=== PATIENT | female | born 1990 | race Caucasian/White ===

== ENCOUNTER → 2020-09-12 | Outpatient (CLI) | payer MEDICAID | END | disposition home or self-care (01) | LOC: LABWHC1 12:41 | PROVIDERS: ATTEND Pediatrics Pediatric Infectious Diseases | DX: Z03.818 Encounter for observation for suspected exposure to other biological agents ruled out (principal) | CPT/HCPCS: U0003; C9803 ==

== ENCOUNTER → 2020-09-15 | Outpatient (CLI) | payer MEDICAID | END | disposition home or self-care (01) | LOC: LABWHC1 15:27 | PROVIDERS: ATTEND Pediatrics Pediatric Infectious Diseases | DX: Z03.818 Encounter for observation for suspected exposure to other biological agents ruled out (principal) | CPT/HCPCS: U0003; C9803 ==

== ENCOUNTER → 2021-08-02 | Outpatient (CLI) | payer MEDICAID | END | disposition home or self-care (01) | LOC: EDSTATUS 10:31 → LABIHS 12:00 → LABWHC1 12:00 | PROVIDERS: ATTEND Emergency Medicine | DX: Z20.822 Contact with and (suspected) exposure to COVID-19 (principal) | CPT/HCPCS: 87635 ==

== ENCOUNTER → 2023-09-17 | Outpatient (CLI) | payer MEDICAID ==
--- NOTE | 2023-09-25 10:19 | HM ---
HOLTER MONITOR REPORT The patient was monitored for 48 hours. CLINICAL INFORMATION: Baseline rhythm is sinus mechanism with a normal conduction. The average rate 74 beats per minute, minimum 53, maximum 148 beats per minute. Ventricular ectopic activity was present in form of rare single PVCs. Supraventricular ectopic activity was present in the form of rare single PACs. There was one episode of 2:1 conduction that occurred at 2:50 a.m. Asymptomatic. Symptoms of palpitations and anxiety did not correlate with any dysrhythmia. CONCLUSION: 1. Sinus mechanism baseline rhythm. 2. Rare ventricular ectopic activity. 3. Rare supraventricular ectopic activity. 4. Symptoms did not correlate with any dysrhythmia. MMODL / IJN: [id number] / MTDJustin
== END | disposition home or self-care (01) ==
LOC: RADECHMAIN 07:40
PROVIDERS: ATTEND Family Medicine
DX: I49.3 Ventricular premature depolarization (principal); R00.2 Palpitations
CPT/HCPCS: 93225; 93226

== ENCOUNTER → 2023-12-05 | Outpatient (CLI) | payer MEDICAID ==
--- NOTE | 2023-12-05 18:47 | CA ---
Exercise Stress Test Report Name: Sue Coon Exam Date: 12/05/2023 09:05 Exam Location: [place] Stress Ht (in): 64 Wt (lb): 130 BSA: 1.63 Ordering Phys: Mary Villalobos MD Referring Phys: CARI, Technologist: Juan Livingston Age: 33 Gender: F : 1990 Procedure CPT: Indications: R00.2 palpitations ICD-10 Codes: Patient History: Medications: Meds past 24 hrs: Pretest Chest Pain: STRESS TEST Kumar Protocol Exercise Duration (min:sec): 12:[address] Depressions (mm): Angina Score: Mckeon Score: Resting HR (bpm): 89 Peak HR (bpm): 169 Resting BP (mmHg): 100 / 77 Peak BP (mmHg): 126 / 49 MPHR: 186 Target HR: 158 % MPHR: 91 METS: 12.1 Total Dose: Peak Dose: Atropine: Double Product: 03601 BP Response: Stress Termination: TARGET HR REACHED/MAX EXERTION Stress Symptoms: NO SYMPTOMS Stress Summary: ECG ANALYSIS Resting ECG: Stress ECG: CONCLUSIONS Good exercise capacity on a Kumar protocol 12 minutes of Kumar protocol, normal heart rate and blood pressure response No ECG evidence for ischemia or arrhythmia Dr. Joe Zuñiga MD (Electronically Signed) Final Date: 05 December 2023 18:46
--- NOTE | 2023-12-06 09:51 | CA ---
Transthoracic Echo Report Name: Sue Coon Age: 33 Gender: F : 1990 Exam Date: 12/05/2023 09:26 Exam Location: [place] Echo Ht (in): 64 Wt (lb): 130 Ordering Physician: Mary Villalobos MD ([id number]) Attending/Referring Phys: Can Repairer Brinda Morejon [facility] Procedure CPT: Indications: R00.2 palpitations Cardiac Hx: Technical Quality: Fair Contrast 1: Total Dose (mL): Contrast 2: Total Dose (mL): MEASUREMENTS (Male / Female) Normal Values 2D ECHO LV Diastolic Diameter PLAX 4.5 cm 4.2 - 5.9 / 3.9 - 5.3 cm LV Systolic Diameter PLAX 3.1 cm IVS Diastolic Thickness 0.7 cm 0.6 - 1.0 / 0.6 - 0.9 cm LVPW Diastolic Thickness 0.7 cm 0.6 - 1.0 / 0.6 - 0.9 cm LV Relative Wall Thickness 0.3 LVOT Diameter 2.0 cm Ascending Aorta Diameter 3.1 cm M-MODE Aortic Root Diameter MM 2.7 cm LA Systolic Diameter MM 2.8 cm LA Ao Ratio MM 1.0 AV Cusp Separation MM 2.2 cm DOPPLER AV Peak Velocity 111.1 cm/s AV Peak Gradient 4.9 mmHg AV Mean Velocity 85.4 cm/s AV Mean Gradient 3.1 mmHg AV Velocity Time Integral 22.4 cm LVOT Peak Velocity 96.2 cm/s LVOT Peak Gradient 3.7 mmHg LVOT Velocity Time Integral 17.8 cm LVOT Stroke Volume 54.5 cm??? LVOT Stroke Volume Index 33.4 ml/m??? LVOT Cardiac Index 3063.6 cm???/min???m??? AV Area Cont Eq vti 2.4 cm??? AV Area Cont Eq pk 2.6 cm??? Mitral E Point Velocity 62.1 cm/s Mitral A Point Velocity 58.3 cm/s Mitral E to A Ratio 1.1 MV Deceleration Time 221.8 ms LV E' Lateral Velocity 16.8 cm/s Mitral E to LV E' Lateral Ratio 3.7 LV E' Septal Velocity 11.9 cm/s Mitral E to LV E' Septal Ratio 5.2 TR Peak Velocity 192.2 cm/s TR Peak Gradient 14.8 mmHg Right Atrial Pressure 3.0 mmHg Pulmonary Artery Systolic Pressu 17.8 mmHg Right Ventricular Systolic Press 17.8 mmHg FINDINGS Left Ventricle Left ventricular wall thickness normal. Left ventricular cavity size normal. Low normal left ventricular systolic function with no obvious regional wall motion abnormalities. Left ventricular ejection fraction is estimated at 50- 55%. Right Ventricle Normal right ventricular size. Right Atrium Normal right atrial size. Left Atrium Normal left atrial size. Mitral Valve Structurally normal mitral valve. No mitral regurgitation. Aortic Valve Trileaflet aortic valve. No aortic valve stenosis or regurgitation. Tricuspid Valve Structurally normal tricuspid valve. Trace tricuspid regurgitation. Pulmonic Valve Pulmonic valve not well visualized. Pericardium Normal pericardium. Aorta Normal size aortic root and proximal ascending aorta. CONCLUSIONS Normal LV size and systolic function Previewed by: Dr. Joe Zuñiga MD (Electronically Signed) Final Date: 06 December 2023 09:51
== END | disposition home or self-care (01) ==
LOC: RADNMMAIN 08:47
PROVIDERS: ATTEND Internal Medicine Interventional Cardiology
DX: R00.2 Palpitations (principal); R07.9 Chest pain, unspecified
CPT/HCPCS: 93017; 93306

== ENCOUNTER 2024-01-08 13:46 | Emergency (ER) | payer MEDICAID ==
[2024-01-08 14:11] VITALS: TEMP 99
[2024-01-08 14:11] LABS: Basophils # (A) 0.1 k/uL (0-0.2); Basophils % (A) 1 %; Eosinophils # (A) 0.3 k/uL (0-0.7); Eosinophils % (A) 4 %; HGB 14.9 gm/dL (11.4-16.0); Lymphocytes # (A) 1.2 k/uL (1.0-4.8); Lymphocytes % (A) 15 %; MCH 29.1 pg (25.0-35.0); MCHC 32.5 g/dL (31.0-37.0); MCV 89.7 fL (80.0-100.0); Mean Platelet Volume 7.2; Monocytes # (A) 0.8 k/uL (0-1.0); Monocytes % (A) 11 %; Neutrophils % (A) 67 %; Platelet Count 236 k/uL (150-450); RBC 5.12 m/uL (3.80-5.40); RDW 12.1 % (11.5-15.5); WBC 7.6 k/uL (3.8-10.6)
--- NOTE | 2024-01-08 14:11 | ED ---
General Adult HPI - General Chief complaint: Shortness of Breath Stated complaint: Tachy,SOB Source: patient Mode of arrival: ambulatory Limitations: no limitations - History of Present Illness Initial comments: Dictation was produced using [employer] dictation software. please excuse any grammatical, word or spelling errors. Chief Complaint: 33-year-old female presents with acute weakness presyncope History of Present Illness: Patient 33-year-old female she works in our [employer] department. She has been feeling ill since this morning. Patient completed a course recently for treatment of bronchitis. She is taking steroids and antibiotics a week ago. This morning she woke up feeling constitutional symptoms with fever chills body aches. She was at work when she had a presyncopal event. Coworkers at the bedside brought patient to the emergency department for further evaluation. Patient states that she has been having a nonproductive cough that has not improved over the last several weeks. The ROS documented in this emergency department record has been reviewed and confirmed by me. Those systems with pertinent positive or negative responses have been documented in the HPI. All other systems are other negative and/or noncontributory. - Related Data Allergies Allergy/AdvReac Type Severity Reaction Status Date / Time cefdinir [From Omnicef] Allergy Rash/Hives Verified 01/08/24 14:10 clarithromycin [From Biaxin] Allergy Rash/Hives Verified 01/08/24 14:10 Review of Systems ROS Statement: Those systems with pertinent positive or pertinent negative responses have been documented in the HPI. ROS Other: All systems not noted in ROS Statement are negative. Past Medical History History of Any Multi-Drug Resistant Organisms: None Reported Past Psychological History: No Psychological Hx Reported Smoking Status: Never smoker Past Alcohol Use History: Rare Past Drug Use History: None Reported General Exam - General Exam Comments Initial Comments: PHYSICAL EXAM: General Impression: Alert and oriented x3, not in acute distress HEENT: Normocephalic atraumatic, extra-ocular movements intact, pupils equal and reactive to light bilaterally, mucous membranes moist. Cardiovascular: Mildly tachycardic Chest: Able to complete full sentences, no retractions, no tachypnea Abdomen: abdomen soft, non-tender, non-distended, no organomegaly Musculoskeletal: Pulses present and equal in all extremities, no peripheral edema Motor: no focal deficits noted Neurological: CN II-XII grossly intact, no focal motor or sensory deficits noted Skin: Intact with no visualized rashes Psych: Normal affect and mood Limitations: no limitations Course Vital Signs 01/08/24 14:00 Temperature 99.0 F Pulse Rate 125 H Respiratory 20 Rate Blood Pressure 135/86 O2 Sat by Pulse 99 Oximetry EKG Findings - EKG Comments: EKG Findings:: My EKG interpretation: Ventricular rate 109, sinus tachycardia,. 152, cures 81, QTc 382. No AK prolongation, no QTC prolongation, no ST or T-wave changes noted. . Overall, this EKG is unremarkable Medical Decision Making - Medical Decision Making Was pt. sent in by a medical professional or institution (, PA, PROPULSION ENGINEER, urgent care, hospital, or custodial...) When possible be specific @ -No Did you speak to anyone other than the patient for history (EMS, parent, family, police, friend...)? What history was obtained from this source @ -Coworkers at the bedside as discussed above Did you review nursing and triage notes (agree or disagree)? Why? @ -I reviewed and agree with nursing and triage notes Were old charts reviewed (outside hosp., previous admission, EMS record, old EKG, old radiological studies, urgent care reports/EKG's, custodial records)? Report findings @ -No old charts were reviewed Differential Diagnosis (chest pain, altered mental status, abdominal pain women, abdominal pain men, vaginal bleeding, musculoskeletal, weakness, fever, dyspnea, syncope, headache, dizziness, GI bleed, back pain, seizure, CVA, palpatations, mental health)? @ -Differential Syncope: Valvular disease, hypertrophic cardiomyopathy, pulmonary embolism, tamponade, tachycardia, bradycardia, GA, hypovolemia, hemorrhage, dissection, anemia, intracranial hemorrhage, seizure, hypoglycemia, carbon monoxide poisoning, this is not meant to be an all-inclusive list. EKG interpreted by me (3pts min.). @ -See above X-rays interpreted by me (1pt min.). @ -Chest x-ray is nonacute CT interpreted by me (1pt min.). @ -None done U/S interpreted by me (1pt. min.). @ -None done What testing was considered but not performed or refused? (CT, X-rays, U/S, labs)? Why? @ -None What meds were considered but not given or refused? Why? @ -None Did you discuss the management of the patient with other professionals (professionals i.e. , PA, PROPULSION ENGINEER, lab, RT, psych nurse, protective services social worker, [employer] teacher, teacher, aboriginal liaison officer, casework manager)? Give summary @ -No Was smoking cessation discussed for >3mins.? @ -No Was critical care preformed (if so, how long)? @ -No Were there social determinants of health that impacted care today? How? (Homelessness, low income, unemployed, alcoholism, drug addiction, transportation, low edu. Level, literacy, decrease access to med. care, intermediate, re hab)? @ -No Was there de-escalation of care discussed even if they declined (Discuss DNR or withdrawal of care, Hospice)? DNR status @ -No What co-morbidities impacted this encounter? (DM, HTN, Smoking, COPD, CAD, Cancer, CVA, ARF, Chemo, Hep., AIDS, mental health diagnosis, sleep apnea, morbid obesity)? @ -None Was patient admitted / discharged? Hospital course, mention meds given and route, prescriptions, significant lab abnormalities, going to OR and other pertinent info. @ -33-year-old female presents to the emergency department for syncope palpitations and constitutional symptoms. Vital signs upon arrival shows heart rate of 125. Low-grade temperature of 98.0. Blood pressure normal. hospital monitor reviewed. Patient would have heart rates into the low 100s. D-dimer is unremarkable her troponin is negative. Electrolytes normal. TSH normal. Influenza A positive. Patient offered Tamiflu patient refused. Patient be discharged. Advised follow-up with primary care doctor. Vital signs improved Undiagnosed new problem with uncertain prognosis? @ -No Drug Therapy requiring intensive monitoring for toxicity (Heparin, Nitro, Insulin, Cardizem)? @ -No Were any procedures done? @ -No Diagnosis/symptom? Acute, or Chronic, or Acute on Chronic? Uncomplicated (without systemic symptoms) or Complicated (systemic symptoms)? @ -Presyncope - Lab Data Result diagrams: 01/08/24 14:06 01/08/24 14:06 Lab Results 01/08/24 01/08/24 01/08/24 Range/Units 14:03 14:06 14:06 WBC 7.6 (3.8-10.6) k/uL RBC 5.12 (3.80-5.40) m/uL Hgb 14.9 (11.4-16.0) gm/dL Hct 46.0 (34.0-46.0) % MCV 89.7 (80.0-100.0) fL MCH 29.1 (25.0-35.0) pg MCHC 32.5 (31.0-37.0) g/dL RDW 12.1 (11.5-15.5) % Plt Count 236 (150-450) k/uL MPV 7.2 Neutrophils % 67 % Lymphocytes % 15 % Monocytes % 11 % Eosinophils % 4 % Basophils % 1 % Neutrophils # 5.0 (1.3-7.7) k/uL Lymphocytes # 1.2 (1.0-4.8) k/uL Monocytes # 0.8 (0-1.0) k/uL Eosinophils # 0.3 (0-0.7) k/uL Basophils # 0.1 (0-0.2) k/uL D-Dimer 0.33 (<0.60) mg/L FEU Sodium 139 (137-145) mmol/L Potassium 3.8 (3.5-5.1) mmol/L Chloride 104 (98-107) mmol/L Carbon Dioxide 24 (22-30) mmol/L Anion Gap 11 mmol/L BUN 10 (7-17) mg/dL Creatinine 0.86 (0.52-1.04) mg/dL Est GFR (CKD-EPI)AfAm >90 (>60 ml/min/1.73 sqM) Est GFR (CKD-EPI)NonAf 89 (>60 ml/min/1.73 sqM) Glucose 96 (74-99) mg/dL Calcium 9.5 (8.4-10.2) mg/dL Magnesium 2.1 (1.6-2.3) mg/dL Troponin I (0.000-0.034) ng/mL TSH 1.500 (0.465-4.680) mIU/L Influenza Type A (PCR) (Not Detectd) Influenza Type B (PCR) (Not Detectd) RSV (PCR) (Not Detectd) SARS-CoV-2 (PCR) (Not Detectd) 01/08/24 01/08/24 Range/Units 14:06 14:11 WBC (3.8-10.6) k/uL RBC (3.80-5.40) m/uL Hgb (11.4-16.0) gm/dL Hct (34.0-46.0) % MCV (80.0-100.0) fL MCH (25.0-35.0) pg MCHC (31.0-37.0) g/dL RDW (11.5-15.5) % Plt Count (150-450) k/uL MPV Neutrophils % % Lymphocytes % % Monocytes % % Eosinophils % % Basophils % % Neutrophils # (1.3-7.7) k/uL Lymphocytes # (1.0-4.8) k/uL Monocytes # (0-1.0) k/uL Eosinophils # (0-0.7) k/uL Basophils # (0-0.2) k/uL D-Dimer (<0.60) mg/L FEU Sodium (137-145) mmol/L Potassium (3.5-5.1) mmol/L Chloride (98-107) mmol/L Carbon Dioxide (22-30) mmol/L Anion Gap mmol/L BUN (7-17) mg/dL Creatinine (0.52-1.04) mg/dL Est GFR (CKD-EPI)AfAm (>60 ml/min/1.73 sqM) Est GFR (CKD-EPI)NonAf (>60 ml/min/1.73 sqM) Glucose (74-99) mg/dL Calcium (8.4-10.2) mg/dL Magnesium (1.6-2.3) mg/dL Troponin I <0.012 (0.000-0.034) ng/mL TSH (0.465-4.680) mIU/L Influenza Type A (PCR) Detected A (Not Detectd) Influenza Type B (PCR) Not Detected (Not Detectd) RSV (PCR) Not Detected (Not Detectd) SARS-CoV-2 (PCR) Not Detected (Not Detectd) Disposition Clinical Impression: Influenza Disposition: HOME SELF-CARE Condition: Good Instructions (If sedation given, give patient instructions): Influenza (ED) Is patient prescribed a controlled substance at d/c from ED?: No Referrals: Zena Poole DO [Primary Care Provider] - 1-2 days Time of Disposition: 15:12
--- NOTE | 2024-01-08 14:23 | XR ---
EXAMINATION TYPE: XR chest 1V portable DATE OF EXAM: 01/08/2024 COMPARISON: NONE HISTORY: Syncope. TECHNIQUE: Single frontal view of the chest is obtained. FINDINGS: There is no focal air space opacity, pleural effusion, or pneumothorax seen. The cardiac silhouette size is within normal limits. The osseous structures are intact. IMPRESSION: No acute process.
[2024-01-08 14:33] LABS: African American GFR (CKD) >90 (>60 ml/min/1.73 sqM); Anion Gap 11 mmol/L; Blood Urea Nitrogen 10 mg/dL (7-17); Calcium 9.5 mg/dL (8.4-10.2); Carbon Dioxide 24 mmol/L (22-30); Chloride 104 mmol/L (98-107); Glucose 96 mg/dL (74-99); Magnesium 2.1 mg/dL (1.6-2.3); Non-African American GFR(CKD) 89 (>60 ml/min/1.73 sqM); Potassium 3.8 mmol/L (3.5-5.1); Sodium 139 mmol/L (137-145)
[2024-01-08 15:42] VITALS: BP 103/72; PULSE 87; RESP 16
== END 2024-01-08 15:22 | disposition home or self-care (01) ==
LOC: EC 13:46
DX: J10.1 Influenza due to other identified influenza virus with other respiratory manifestations (principal); Z88.1 Allergy status to other antibiotic agents; Z20.822 Contact with and (suspected) exposure to COVID-19
CPT/HCPCS: 36415; 71045; 80048; 83735; 84443; 84484; 84703; 85025; 85379; 87636; 93005; 99285

== ENCOUNTER → 2024-09-01 | Outpatient (CLI) | payer MEDICAID ==
--- NOTE | 2024-09-03 10:38 | CT ---
EXAMINATION TYPE: CT chest wo con CT DLP: 167.80 mGycm, Automated exposure control for dose reduction was used. 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 TECHNIQUE: Multiple axial images were obtained through the chest. Sagittal and coronal reformats were created for review. MIP was performed on a separate workstation. Contrast used: mL of (None if empty) Oral contrast used: (None if empty) FINDINGS: LUNGS/ PLEURA: Left lower lung 4 mm pulmonary nodule. AIRWAY: Patent and unremarkable. HEART: Size within normal limits. MEDIASTINUM: No gross evidence of adenopathy. VASCULATURE: No aortic aneurysm. MUSCULOSKELETAL: No acute osseous abnormalities SOFT TISSUES/LYMPH NODES: Unremarkable. LOWER NECK: No significant findings. UPPER ABDOMEN: No significant findings. IMPRESSION: 1. No evidence for acute process. No rib fracture visualized. 2. Left lower lung 4 mm pulmonary nodule likely benign given patient's age. [facility], , 09/03/2024 10:36 AM
== END | disposition home or self-care (01) ==
LOC: RADCTMAIN 08:20
PROVIDERS: ATTEND Family Medicine
DX: R07.81 Pleurodynia
CPT/HCPCS: 71250